=== PATIENT | female | born 1965 | race Asian ===

== ENCOUNTER 2017-11-21 08:03 | Inpatient (IN) | payer BC ==
[~2017-11-21] VITALS: Ht 167.6 cm; Wt 73.6 kg
[2017-11-21 08:12] VITALS: Ht 167.6 cm; Wt 73.6 kg
[2017-11-21 09:07] LABS: microscopic required? NO
[2017-11-21 09:28] LABS: CALCIUM 9.1 mg/dL (8.5-10.1); CARBON DIOXIDE 26.5 mmol/L (21-32); CHLORIDE SERUM 107 mmol/L (98-107); CREATININE SERUM 0.7 mg/dL (0.6-1.0); GFR1 > 60 mL/min; GLUCOSE SERUM 142 mg/dL (74-106); POTASSIUM SERUM 3.4 mmol/L (3.5-5.1); SODIUM SERUM 140 mmol/L (136-145)
[2017-11-21 09:40] LABS: ALBUMIN 3.4 g/dL (3.4-5.0); ALKALINE PHOSPHATASE 80 U/L (46-116); ALT/SGPT 28 U/L (14-59); AST/SGOT 24 U/L (15-37); BILIRUBIN TOTAL 0.44 mg/dL (0.20-1.00); LIPASE 94 IU/L (73-393); TOTAL PROTEIN, SERUM 7.6 g/dL (6.4-8.2)
[2017-11-21 09:55] LABS: OSMOLALITY SERUM 299 mOsm/kg (278-298)
[2017-11-21 09:59] LABS: urine erythrocyte NEGATIVE (NEGATIVE)
[2017-11-21] MEDS ORDERED: ATIVAN1 MG PO (10:02)
[2017-11-21 10:14] LABS: AMPHETAMINE QUAL UR NONE DETECTED (See below)
[2017-11-21 11:21] LABS: BASOPHIL % 0.4 % (0-2); PLATELET COUNT 241 x10^3mcL (130-400); RED CELL DISTRIBUTION WIDTH 13.2 % (11.5-14.5)
[2017-11-21 11:42] LABS: T3 TOTAL 1.09 ng/mL
[2017-11-21 12:41] LABS: CHOLESTEROL/HDL RATIO 2.9; MAGNESIUM 1.8 mg/dL (1.8-2.4); PHOSPHOROUS 3.3 mg/dL (2.5-4.9)
[2017-11-21 12:46] LABS: FREE T4 1.18 ng/dL (0.76-1.46); FREE THYROXINE INDEX 2.4 ug/dL (1.4-4.5); T4(THYROXINE) 7.7 ug/dL (4.7-13.3)
[2017-11-21 14:27] VITALS: BP 147/96
[2017-11-21 16:23] VITALS: BP 135/61
[2017-11-21 19:58] VITALS: BP 99/55
[2017-11-22 06:40] LABS: BASOPHIL % 0.5 % (0-2); PLATELET COUNT 268 x10^3mcL (130-400); RED CELL DISTRIBUTION WIDTH 13.3 % (11.5-14.5)
[2017-11-22 07:47] LABS: CALCIUM 9.2 mg/dL (8.5-10.1); CHLORIDE SERUM 108 mmol/L (98-107); CREATININE SERUM 0.7 mg/dL (0.6-1.0); GFR1 > 60 mL/min; GLUCOSE SERUM 86 mg/dL (74-106); POTASSIUM SERUM 3.3 mmol/L (3.5-5.1); SODIUM SERUM 141 mmol/L (136-145)
[2017-11-22 08:00] VITALS: BP 137/69
[2017-11-22 12:00] VITALS: BP 125/76
[2017-11-22 17:14] VITALS: BP 125/76
== END 2017-11-22 17:37 | disposition home or self-care (01) | DRG 93 ==
LOC: ED 08:03 → IC 11:57
PROVIDERS: Emergency Medicine; Internal Medicine
DX: G92 Toxic encephalopathy (principal); E87.6 Hypokalemia; M19.90 Unspecified osteoarthritis, unspecified site; F41.9 Anxiety disorder, unspecified; I95.9 Hypotension, unspecified; Y92.89 Other specified places as the place of occurrence of the external cause; T14.91XA Suicide attempt, initial encounter
CPT/HCPCS: 36600; 83880; 84439; C9113; G0480; J0461; J2405; J7030; Q0092